=== PATIENT | male | born 1970 | race Caucasian/White ===

== ENCOUNTER 2016-10-08 02:45 | Emergency (ER) | payer OTHER ==
[~2016-10-08] VITALS: Ht 177.8 cm; Wt 96.9 kg
[~2016-10-08 02:45] MED LIST: LANS30CA16 PO; LISI5TAB7 PO; LORA2TAB99 PO
[2016-10-08 02:46] VITALS: BP 157/105
[2016-10-08] MEDS ORDERED: ONDANSETRON 2MG/ML, 2ML ONE (03:45)
[2016-10-08] MEDS ORDERED: FAMOTIDINE 20 MG/2 ML ONE (03:45)
[2016-10-08] MEDS ORDERED: HYDROmorphone 1 MG/ML, 1ML ONE ×2 (03:45→05:02)
[2016-10-08] MEDS: HYDROmorphone 1 MG/ML, 1ML IVPush PRN ×2 (03:47→05:04)
[2016-10-08] MEDS ORDERED: SODIUM CHLORIDE 0.9% 1,000ML IVBOLUS ONE (04:00)
[2016-10-08] MEDS ORDERED: SODIUM CHLORIDE FLUSH 10ML SYR IVF ONE (04:00)
[2016-10-08] MEDS ORDERED: FAMOTIDINE 20 MG/2 ML IVP ONE (04:00)
[2016-10-08] MEDS ORDERED: ONDANSETRON 2MG/ML, 2ML IVPush ONE (04:00)
[2016-10-08 04:01] LABS: ASPARTATE AMINO TRANSFERASE 21 U/L (15-37); BLOOD UREA NITROGEN 7 mg/dL (7-18)
[2016-10-08 04:05] LABS: IS PT STATUS REG ER OR PRE ER? YES
[2016-10-08] MEDS ORDERED: OMNIPAQUE 350 MG/ML, 100ML BOTTLE ONE (18:00)
== END 2016-10-08 05:49 | disposition home or self-care (01) ==
LOC: ED 04:16
DX: R10.13 Epigastric pain (principal); R10.12 Left upper quadrant pain; I10 Essential (primary) hypertension
CPT/HCPCS: 36415; 71010; 74177; 80053; 83690; 84484; 85025; 93005; 96374; 96375; 96376; 99285; J1170; J2405; J7030; Q9967; S0028